=== PATIENT | female | born 2005 | race Asian ===

== ENCOUNTER 2023-10-14 22:14 | Emergency (ER) | payer OTHER, SELFPAY ==
[2023-10-14 22:19] VITALS: BP 122/79; PULSE 85; RESP 14; TEMP 36.2; O2SAT 99; BMI 31.6
--- NOTE | 2023-10-14 23:36 | ED.GENADULT ---
HPI - General Adult General Chief complaint: Eye Problems Stated complaint: contact lenses stuck in eye Time Seen by Provider: 10/14/23 22:50 Source: patient, RN notes reviewed and old records reviewed Mode of arrival: ambulatory Limitations: no limitations History of Present Illness HPI narrative: [age] old female presents for evaluation of right eye pain. Patient reports that she uses contacts. She states that her contact is stuck right on her eye She reports that she has been trying to remove it because it feels like it is stuck and she can not get it out Denies getting anything else in the eye Related Data Previous Rx's Medication Instructions Recorded ciprofloxacin HCl 0.3 % eye 1 appl ophthalmic (eye) TID 5 days 10/14/23 ointment #3.5 grams Allergies Allergy/AdvReac Type Severity Reaction Status Date / Time amoxicillin Allergy Unknown Verified 10/14/23 22:18 Review of Systems Constitutional: Constitutional: Denies chills and Denies fever(s) Eyes: Eyes: Reports blurry vision, Reports irritation, Reports eye pain and Reports requires corrective lenses Physical Exam ED Vital Signs: Vital Signs - 24 hr 10/14/23 22:19 Temperature 97.1 F Pulse Rate 85 Respiratory Rate 14 Blood Pressure 122/79 Pulse Oximetry 99 Oxygen Delivery Method Room Air BMI result Body Mass Index 31.6 Const General: healthy appearing, comfortable, no acute distress, alert and awake Nutritional Appearance: well nourished Orientation/consciousness: patient oriented x3 HENMT Head: Yes normocephalic and Yes atraumatic Eyes Visual Betancourt: normal visual betancourt by confrontation Alignment and Position: alignment normal Periorbital: periorbital findings normal Corneas: corneas abnormal on the right fluorescein used and abrasion central and fluorescein used; abnormal corneas Pupils: Equal, round and reactive pupils present EOM: EOMs intact bilaterally Direct Ophthalmoscopy: normal light reflex Resp Effort & Inspection: normal respiratory effort, able to speak in complete sentences and not labored Skin General skin exam: elasticity normal Neuro General: patient oriented x3 Cranial nerves: Yes Equal, round and reactive pupils present and Yes Bilaterally intact EOM present Cognition (Neuro): normal cognition Extrem Other: Moving all extremities well without any obvious deformities Medical Decision Making Medical Decision Making MDM Narrative: Thorough examination of the eye does not show any obvious foreign body. The eyelid was inverted that also did not show any knee underneath the eyelid. Fluorescein stain showed corneal abrasion overlying the center of the right cornea. Patient be treated with erythromycin the ER as we have no ciprofloxacin will be discharged ciprofloxacin as she has a contact lens wear Differential Diagnosis Differential Diagnoses: The differential diagnosis associated with the presentation includes Foreign body Corneal abrasion Iritis Right eye pain Discharge Plan Discharge Clinical Impression: Corneal abrasion Patient Disposition: Home, Self-Care Instructions: Corneal Abrasion (ED) Additional Instructions: Your contact is definitely not in your eye You have a corneal abrasion which is contributing to your pain and the sensation that there is something in your eye Use the eye ointment 3 times a day for the next 5 days Do not put contacts and for at least 1 week Follow-up with your primary doctor Prescriptions: New ciprofloxacin HCl 0.3 % ointment 1 appl ophthalmic (eye) TID 5 Days Qty: 3.5 0RF
[2023-10-14] MEDS: Fluorescein Sodium STRIP 1 STRIP EYE-RIGHT ×2 (23:59)
[2023-10-14] MEDS: Erythromycin Base 0.5% Oph Oin 1 GM TUBE 1 CM EYE-RIGHT (23:59)
[2023-10-14] MEDS: Tetracaine HCl/PF 0.5% Oph Sol 4 ML DROPS 1 DROP EYE-BOTH (23:59)
--- NOTE | 2023-10-15 00:05 | PC.NURSE ---
pt medicated according to mar. pt calm and cooperative. pt friend at bedside at discharge. pt provided with discharge packet pt verbalized understanding of discharge plan
== END 2023-10-15 00:14 | disposition home or self-care (01) ==
PROVIDERS: Emergency Provider Student in an Organized Health Care Education/Training Program
DX: S05.01XA Injury of conjunctiva and corneal abrasion without foreign body, right eye, initial encounter (principal); H18.821 Corneal disorder due to contact lens, right eye; Y28.9XXA Contact with unspecified sharp object, undetermined intent, initial encounter; Y93.9 Activity, unspecified; Y92.9 Unspecified place or not applicable; Y99.8 Other external cause status
CPT/HCPCS: 99283; 99284